=== PATIENT | female | born 1990 | race African-American/Black ===

== ENCOUNTER 2016-12-12 23:02 | Emergency (ER) | payer OTHER ==
[2016-12-12 23:14] VITALS: BP 140/75; PULSE 84; TEMP 98.4; BMI 27.3
--- NOTE | 2016-12-12 23:35 | PDOC ---
History of Present Illness - General History Source: Patient Exam Limitations: No Limitations - History of Present Illness Initial Comments: 12/13/16 04:30 The patient is a 26 year old female, 12 weeks with twins, with no significant past medical history, who presents to the ER with vaginal bleeding. Patient states she had one episode of bright vaginal blood. The friend told the patient that the bright red blood is reason for concern and brought the patient to the ER. Denies lightheadedness Denies fever, chills Denies nausea, vomiting, diarrhea Denies changes in appetite <Mary Frye - Last Filed: 12/13/16 04:30> <Laura Calderon - Last Filed: 12/13/16 05:22> - General Chief Complaint: Vaginal Bleeding Stated Complaint: VAGINAL BLEEDING/12 WKS Time Seen by Provider: 12/12/16 23:34 Past History <Mary Frye - Last Filed: 12/13/16 04:30> - Past Medical History Suicide Attempt (Hx): No - Psycho/Social/Smoking Cessation Hx Anxiety: No Suicidal Ideation: No Smoking Status: No Smoking History: Never smoked Have you smoked in the past 12 months: No Number of Cigarettes Smoked Daily: 0 Information on smoking cessation initiated: No 'Breaking Loose' booklet given: 08/16/16 Hx Alcohol Use: No Drug/Substance Use Hx: No Substance Use Type: None <Laura Calderon - Last Filed: 12/13/16 05:22> - Past Medical History Allergies/Adverse Reactions: Allergies Allergy/AdvReac Type Severity Reaction Status Date / Time No Known Allergies Allergy Verified 12/12/16 23:08 Home Medications: Ambulatory Orders No Home Medications 0 dose .ROUTE UTDICT 12/06/12 Review of Systems - Review of Systems Comments:: 12/13/16 04:31 CONSTITUTIONAL: Absent: fever, no chills, no fatigue EYES: Absent: visual changes ENT: Absent: ear pain, no sore throat CARDIOVASCULAR: Absent: chest pain, no palpitations RESPIRATORY: Absent: cough, no SOB GI: Absent: abdominal pain, no nausea, no vomiting, no constipation, no diarrhea GENITOURINARY: Absent: dysuria, no frequency, no hematuria PELVIC: (+) Vaginal bleeding MUSCULOSKELETAL: Absent: back pain, no arthralgia, no myalgia SKIN: Absent: rash NEURO: Absent: headache <Mary Frye - Last Filed: 12/13/16 04:30> *Physical Exam - Vital Signs Last Vital Signs Temp Pulse Resp BP Pulse Ox 98.4 F 84 18 140/75 99 12/12/16 23:05 12/12/16 23:05 12/12/16 23:05 12/12/16 23:05 12/12/16 23:05 - Physical Exam Comments: 12/13/16 04:31 GENERAL: Well-appearing, well-nourished. No apparent distress. HEENT: Normocephalic, atraumatic. PERRL, EOM intact. CARDIOVASCULAR: Normal S1, S2. Regular rate and rhythm. PULMONARY: Clear to auscultation bilaterally. ABDOMEN: Soft, non-distended, non-tender. EXTREMITIES: Normal ROM in all four extremities. No gross deformities. SKIN: Warm, dry. No rash NEUROLOGICAL: No focal neurological deficits. <VtannabellaMary - Last Filed: 12/13/16 04:30> - Vital Signs Last Vital Signs Temp Pulse Resp BP Pulse Ox 98.4 F 84 18 140/75 99 12/12/16 23:05 12/12/16 23:05 12/12/16 23:05 12/12/16 23:05 12/12/16 23:05 <Laura Calderon - Last Filed: 12/13/16 05:22> ED Treatment Course - LABORATORY CBC & Chemistry Diagram: 12/13/16 00:08 - ADDITIONAL ORDERS Additional order review: Laboratory Results 12/13/16 12/13/16 12/13/16 04:05 02:38 00:08 Beta HCG, Quant 44423.9 Urine Color Straw Urine Appearance Clear Urine pH 7.0 Urine Protein Negative Urine Glucose (UA) Negative Urine Ketones Negative Urine Blood 2+ H Urine Nitrite Negative Urine Bilirubin Negative Urine Urobilinogen Negative Ur Leukocyte Esterase Trace H Urine RBC 1 Urine WBC 3 Ur Epithelial Cells Rare Urine Mucus Rare Blood Type O POSITIVE Antibody Screen Negative 12/13/16 00:08 RBC 3.91 MCV 85.6 MCHC 33.1 RDW 13.5 MPV 7.9 Neutrophils % 71.8 Lymphocytes % 17.8 Monocytes % 9.7 Eosinophils % 0.4 Basophils % 0.3 <UdayMary - Last Filed: 12/13/16 04:30> - LABORATORY CBC & Chemistry Diagram: 12/13/16 00:08 <Laura Calderon - Last Filed: 12/13/16 05:22> Medical Decision Making - Medical Decision Making 12/13/16 01:45 Patient Name: Kindra Jeffrey This is a preliminary report by imaging electronic warfare technical Exam: Transabdominal and endovaginal sonogram twin Images: 23 Clinical indication: Threatened . Findings: Twin A. crown-rump length measurements correspond to gestational age of 12 weeks zero days. heart rate is 171 beats per minute. Twin B crown rump length measurements correspond to 12 weeks 2 days with a heart rate of 166 beats per minute. A membrane separates twin A from twin B. The uterus is anteverted and measures 16.4 x 7.6 x 12.7 cm. Impression: Live twin intrauterine gestations as above. THIS DOCUMENT HAS BEEN ELECTRONICALLY SIGNED <Laura Calderon - Last Filed: 12/13/16 05:22> *DC/Admit/Observation/Transfer - Attestations Scribe Attestion: 12/13/16 04:31 Documentation prepared by Mary Frye, acting as electromedical equipment technician for Laura Calderon MD. <Mary Frye - Last Filed: 12/13/16 04:30> - Discharge Dispostion Admit: No <Laura Calderon - Last Filed: 12/13/16 05:22> Diagnosis at time of Disposition: Threatened , Twin gestation in first trimester - Discharge Dispostion Disposition: HOME Condition at time of disposition: Stable - Referrals Referrals: Joselo Billings MD [Staff Physician] - - Patient Instructions Printed Discharge Instructions: Threatened
[2016-12-13 00:26] LABS: BASOPHIL 0.3 % (0-2.0); EOSINOPHIL 0.4 % (0-4.5); MCH 28.4 pg (25.7-33.7); MCHC 33.1 g/dl (32.0-36.0); MEAN CELL VOLUME 85.6 fl (80-96); MEAN PLT VOLUME 7.9 fl (7.5-11.1); NEUTROPHILS 71.8 % (42.8-82.8); PLATELET COUNT 223 K/MM3 (134-434); RDW 13.5 % (11.6-15.6); WHITE BLOOD COUNT 10.9 K/mm3 (4.0-10.0)
[2016-12-13 04:18] LABS: URINE APPEARANCE CLEAR; URINE BILIRUBIN NEGATIVE (NEGATIVE); URINE COLOR STRAW; URINE GLUCOSE (UA) NEGATIVE (NEGATIVE); URINE KETONE NEGATIVE (NEGATIVE); URINE NITRITE NEGATIVE (NEGATIVE); URINE PROTEIN NEGATIVE (NEGATIVE); URINE UROBILINOGEN NEGATIVE E.U./dl (0.2-1.0)
[2016-12-13 04:26] LABS: URINE BLOOD 2+ (NEGATIVE); URINE LEUK ESTERASE TRACE (NEGATIVE)
[2016-12-13 04:28] LABS: URINE MUCUS RARE; URINE RBC 1 /hpf (0-3); URINE WBC 3 /hpf (3-5)
== END 2016-12-13 05:48 | disposition home or self-care (01) ==
LOC: JER 23:02 → SUPCPDRO 23:02 → JER 12-13 05:48
DX: O30.091 Twin pregnancy, unable to determine number of placenta and number of amniotic sacs, first trimester (principal); O20.0 Threatened abortion; Z3A.12 12 weeks gestation of pregnancy
CPT/HCPCS: 36415; 76801-TC; 81003; 81015; 84702; 85025; 86850; 86900; 86901; 99281-25